=== PATIENT | male | born 1955 | race Caucasian/White ===

== ENCOUNTER → 2020-07-16 | Outpatient (CLI) | payer OTHER ==
[~2020-07-16] VITALS: Ht 182.9 cm; Wt 119.3 kg
[2020-07-16] VITALS (8 sets, daily range): BP systolic 101–159; BP diastolic 66–81
[~2020-07-16] MED LIST: FLOMAX0.4 MG PO; LIPITOR40 MG PO; LISINOPRIL20 MG PO; NORCO5 PO; PROSCAR 5MG TABL5 M1 PO; TOPROL XL25 MG PO
[2020-07-16 12:12] LABS: HEMOGLOBIN 15.7 gm/dL (14.0-18.0); MCH 30.2 pg (26.0-34.0); MCHC 34.2 g/dL (28.0-37.0); MCV 88.3 fL (80.0-100.0); MPV 8.1 fl. (7.2-11.1); RBC 5.22 mil/uL (4.50-6.00); RDW-CV 13.9 % (10.5-14.5); WBC 7.9 thou/uL (4.0-11.0)
[2020-07-16 12:20] LABS: ANION GAP 6 mmol/L (7-16); BUN 16 mg/dL (7-18); CALCIUM 8.9 mg/dL (8.5-10.1); CHLORIDE 103 mmol/L (98-107); CO2 26 mmol/L (21-32); CREATININE 0.9 mg/dL (0.6-1.3); GLUCOSE 103 mg/dL (70-99); POTASSIUM 4.1 mmol/L (3.5-5.1); SODIUM 135 mmol/L (136-145)
[2020-07-16 12:24] LABS: APTT 23.7 Seconds (25.0-31.3); PROTIME 10.3 Seconds (9.20-11.50)
[2020-07-16 12:25] LABS: ALBUMIN 3.9 g/dL (3.4-5.0); ALKALINE PHOSPHATASE 82 U/L (46-116); SGOT 22 U/L (15-37); SGPT 52 U/L (30-65); TOTAL BILIRUBIN 0.4 mg/dL (<0.1-1.0); TOTAL PROTEIN 8.1 g/dL (6.4-8.2)
[2020-07-16 12:26] LABS: SERUM ASSESSMENT Clear
[2020-07-16 12:37] LABS: CHOLESTEROL 132 mg/dL (<200); HDL CHOLESTEROL 32 mg/dL (>40); LDL CHOLESTEROL 73 mg/dL (<100); TC:HDL 4.1 Ratio (Not establshd); TRIGLYCERIDE 135 mg/dL (<150); VLDL 27 mg/dL (<40)
--- NOTE | 2020-07-16 14:22 | EKG ---
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
--- NOTE | 2020-07-16 14:47 | CARD ---
[address] [address] CARDIAC CATH REPORT Name: KO FRITZ Room: [facility]#: [id number] Admission: 07/16/20 Attend Phys: Kevon Duffy MD, F Discharge: Date of : 53 Report #: [id number] THIS REPORT FOR: cc: Nicko Nascimento MD, Steven E. MD Blick, David R. MD [facility] ~ APPROVED REPORT Study performed: 07/16/2020 12:05:24 Patient Details Patient Status: Out-Patient Room #: The patient is a 64 year-old male Event Personnel Kevon Duffy Bench Assembler Battery, Fay Cuenca RN Physiotherapy Practice Manager, Shreya Tang RTR [employer] Brad [employer]ICAL [employer]OR[employer] FIELD TECHNICIAN Monitor Procedures Performed [facility] Indication Positive stress test, Chest pain Risk Factors Hypercholesterolemia, Hypertension, Tobacco History () Admission/Lab Medications/Medications given during procedure Heparin Unfract. Procedure Narrative The patient was brought electively to the Cardiac Catheterization Laboratory and was prepped and draped in a sterile manner. The right wrist was infiltrated with 2% Lidocaine subcutaneous anesthesia. A Slender Glidesheath sheath was inserted into the right radial artery. Coronary angiography was performed using coronary diagnostic catheters. The right coronary system was accessed and visualized with a 3DRC 6frDiagnostic catheter. The left coronary system was accessed and visualized with a Diagnostic JL4 catheter. The left ventricle was accessed and visualized with a PIG-TAIL catheter. Left ventricular/Aortic Valve gradient assessed via catheter pullback. Left ventriculogram was performed in [place] projection. Closure device was deployed with a 6 Fr Vasc-Band Lng 27cm. The patient tolerated the procedure well and there [place] [address] CARDIAC CATH REPORT Name: KO FRITZ Room: [facility]#: [id number] Admission: 07/16/20 Attend Phys: Kevon Duffy MD, F Discharge: Date of : 53 Report #: [id number] the procedure. There was no hematoma. Because of takeoff, unable to cannulate RCA ostium with a JR4 catheter. Intraoperative Conscious Sedation Sedation start time: 1315 Case end Time: 1343 Fentanyl 25 mcg Versed 2 mg Fluoro Time: 6.9 minutes Dose: DAP 57969 cGycm2 1368 mGy Contrast Type and Amount: Omnipaque 100 ml Coronary Angiography The patient's coronary anatomy is right dominant. Diagnostic Cath Left Main 0% stenosis LAD 0% stenosis Diagonal 1 60% mid stenosis Circumflex 60% distal stenosis after the takeoff of the 3rd marginal branch OM2 40% proximal stenosis OM3 50% proximal stenosis Right Coronary 50% proximal and 30% mid stenosis Left Ventriculography The left ventricular ejection fraction is estimated to be 60-65%. Left ventricular wall motion abnormalities are not present. There is no mitral insufficiency. Hemodynamics The aortic pressure is 95/58 mmHg with a mean of 75 mmHg. The left ventricular pressure is 104/10 mmHg with a mean of mmHg. The left ventricular end diastolic pressure is 13 mmHg. There was no gradient across the aortic valve upon pullback. Pullback from the left ventricle to the aorta revealed no gradient across the aortic valve. Conclusion 1. Mild CAD with a 60% stenosis of a diagonal branch, 60% stenosis of the distal circumflex artery, and 50% stenosis of the proximal RCA 2. LVEF 60-65% [place] [address] CARDIAC CATH REPORT Name: KO FRITZ Room: [facility]#: [id number] Admission: 07/16/20 Attend Phys: Kevon Duffy MD, F Discharge: Date of : 53 Report #: [id number] Recommendations Suspect noncardiac chest pain <ELECTRONICALLY SIGNED> By: Kevon Duffy MD, FACAngelique 07/16/20 1447 1447 1447Kevon Duffy MD, FACC /INF
== END | disposition home or self-care (01) ==
LOC: M.CL 11:27
PROVIDERS: ATTEND Internal Medicine Cardiovascular Disease
DX: R07.9 Chest pain, unspecified (principal); R94.39 Abnormal result of other cardiovascular function study; I25.10 Atherosclerotic heart disease of native coronary artery without angina pectoris; I10 Essential (primary) hypertension; E78.00 Pure hypercholesterolemia, unspecified; N40.0 Benign prostatic hyperplasia without lower urinary tract symptoms; I42.0 Dilated cardiomyopathy; M19.90 Unspecified osteoarthritis, unspecified site; E66.09 Other obesity due to excess calories; Z98.890 Other specified postprocedural states; Z79.899 Other long term (current) drug therapy; Z87.891 Personal history of nicotine dependence; Z20.822 Contact with and (suspected) exposure to COVID-19